=== PATIENT | male | born 1955 | race Caucasian/White ===

== ENCOUNTER 2017-11-25 15:54 | Inpatient (IN) | payer BC ==
[~2017-11-25] VITALS: Ht 180.3 cm; Wt 103.8 kg
[2017-11-25 16:51] LABS: BASOPHIL (%) 0.1 % (0-1); EOSINOPHIL (%) 0 % (0-5); HEMATOCRIT 42.8 % (38.0-50.0); HEMOGLOBIN 14.4 G/DL (12.5-16.6); IMMATURE GRANULOCYTE (%) 0.4 % (0.0-0.7); LYMPHOCYTE (%) 6.9 % (15-42); LYMPHOCYTE COUNT 0.9 K/uL (1.0-2.8); MCH 29.7 PG (29.0-34.0); MCHC 33.6 G/DL (30.0-36.0); MCV 88.2 FL (86-99); MONOCYTE (%) 10.2 % (3-12); MONOCYTE COUNT 1.4 K/uL (0-0.8); NEUTROPHIL (%) 82.4 % (45-76); PLATELET COUNT 176 K/uL (156-360); RBC DIS.WIDTH-CV 14.5 % (11.8-14.6); RED BLOOD COUNT 4.85 M/uL (4.00-5.50); WHITE BLOOD COUNT 13.4 K/uL (4.1-10.2)
[2017-11-25 16:59] LABS: ALBUMIN 4.6 g/dL (3.2-4.8); CHLORIDE 99 mEq/L (99-109); POTASSIUM 3.9 mEq/L (3.7-5.4)
[2017-11-25 17:00] LABS: SODIUM 136 mEq/L (136-147)
[2017-11-25 17:02] LABS: GLUCOSE 119 mg/dL (70-99); TOTAL PROTEIN 7.7 g/dL (6.4-8.3)
[2017-11-25 17:04] LABS: TOTAL BILIRUBIN 0.9 mg/dL (0.0-1.0)
[2017-11-25 17:05] LABS: ALKALINE PHOSPHATASE 47 IU/L (3-129); CREATININE 1.3 mg/dL (0.6-1.3); GFR ESTIMATE (CALCULATED) > 59 mL/min/ (58.99-99999)
[2017-11-25 17:07] LABS: AST (GOT) 15 IU/L (2-34); UREA NITROGEN (BUN) 18 mg/dL (9-23)
[2017-11-25 17:08] LABS: ALT (GPT) 12 IU/L (3-49)
[2017-11-25 17:09] LABS: LIPASE 16 U/L (1.0-51.0)
[2017-11-25 17:57] LABS: APPEARANCE CLEAR ((CLEAR)); BILIRUBIN NEGATIVE; BLOOD SMALL; COLOR STRAW ((YELLOW)); GLUCOSE (STRIP) NEGATIVE; KETONES 5; LEUKOCYTES NEGATIVE; NITRITE NEGATIVE; PROTEIN (STRIP) NEGATIVE; SPECIFIC GRAVITY 1.008 (1.000-1.030); UROBILINOGEN 0.2 MG/DL (0.2-1.0)
[2017-11-25 18:00] LABS: BACTERIA NONE SEEN /HPF; EPITHELIAL CELLS NONE SEEN /HPF; MUCUS NONE SEEN /LPF; RED BLOOD CELLS 0-5 /HPF (0-5); UCUL ADDED? NO; WHITE BLOOD CELLS 0-5 /HPF (0-5)
[2017-11-25] MEDS ORDERED: METRONIDAZOLE500 MG PO (18:38)
[2017-11-25] MEDS ORDERED: ALLOPURINOL300 MG PO (18:38)
[2017-11-25] MEDS ORDERED: OLMESARTAN MEDO40 MG PO (18:38)
[2017-11-25] MEDS ORDERED: ALLOPURINOL100 MG PO (18:38)
[2017-11-25] MEDS ORDERED: CIPROFLOXACIN500 M1 PO (18:39)
[2017-11-25] MEDS ORDERED: ADULT ASPIRIN R81 MG PO (18:44)
[2017-11-25] MEDS ORDERED: VITAMIN D31000 UNIT PO (18:45)
[2017-11-25] MEDS ORDERED: FISH OIL 1,0001 EAC7 PO (18:45)
[2017-11-25 20:53] LABS: C-REACTIVE PROTEIN 162.5 MG/L (0-10)
[2017-11-25 21:21] VITALS: BP 143/68
[2017-11-25 23:19] VITALS: BP 139/65
[2017-11-25 23:33] VITALS: BP 128/60
[2017-11-26 06:49] LABS: BASOPHIL (%) 0.3 % (0-1); EOSINOPHIL (%) 0.3 % (0-5); HEMATOCRIT 36.7 % (38.0-50.0); IMMATURE GRANULOCYTE (%) 0.4 % (0.0-0.7); LYMPHOCYTE (%) 8.2 % (15-42); LYMPHOCYTE COUNT 0.9 K/uL (1.0-2.8); MCH 29.2 PG (29.0-34.0); MCV 88.4 FL (86-99); MONOCYTE (%) 12.2 % (3-12); MONOCYTE COUNT 1.4 K/uL (0-0.8); NEUTROPHIL (%) 78.6 % (45-76); NEUTROPHIL COUNT 8.9 K/uL (1.8-6.4); PLATELET COUNT 148 K/uL (156-360); RBC DIS.WIDTH-CV 14.6 % (11.8-14.6); RBC DIS.WIDTH-SD 47.7 % (39-53); RED BLOOD COUNT 4.15 M/uL (4.00-5.50); WHITE BLOOD COUNT 11.3 K/uL (4.1-10.2)
[2017-11-26 06:51] LABS: HEMOGLOBIN 12.1 G/DL (12.5-16.6)
[2017-11-26 07:08] LABS: CHLORIDE 105 MEQ/L (99-109); CREATININE 1.2 MG/DL (0.6-1.3); GFR ESTIMATE (CALCULATED) > 59 mL/min/ (58.99-99999); GLUCOSE 108 mg/dL (70-99); POTASSIUM 4.1 MEQ/L (3.7-5.4); SODIUM 141 MEQ/L (136-147); UREA NITROGEN (BUN) 15 mg/dL (9-23)
[2017-11-26 08:04] VITALS: BP 129/62
[2017-11-26 15:48] LABS: C DIFF TOXIN NEGATIVE (NEGATIVE)
[2017-11-26 16:24] VITALS: BP 132/70
[2017-11-26 23:22] VITALS: BP 102/57
[2017-11-27 07:15] VITALS: BP 119/56
[2017-11-27 09:41] VITALS: BP 169/81
[2017-11-27 15:51] VITALS: BP 138/78
[2017-11-27 23:17] VITALS: BP 142/79
[2017-11-28 06:16] LABS: HEMATOCRIT 33.7 % (38.0-50.0); HEMOGLOBIN 10.9 G/DL (12.5-16.6); MCH 29.2 PG (29.0-34.0); MCHC 32.3 G/DL (30.0-36.0); MCV 90.3 FL (86-99); PLATELET COUNT 179 K/uL (156-360); RBC DIS.WIDTH-CV 14.3 % (11.8-14.6); RBC DIS.WIDTH-SD 47.5 % (39-53); RED BLOOD COUNT 3.73 M/uL (4.00-5.50); WHITE BLOOD COUNT 5.2 K/uL (4.1-10.2)
[2017-11-28 07:22] VITALS: BP 130/77
[2017-11-28] MEDS ORDERED: CIPROFLOXACIN500 M1 PO (13:28)
[2017-11-28] MEDS ORDERED: METRONIDAZOLE500 MG PO (13:29)
== END 2017-11-28 15:36 | disposition home or self-care (01) | DRG 392 ==
LOC: EME 15:54 → 5EAST 19:28 → EDOF 19:28 → ENRESERV 19:35 → 5EAST 20:48
PROVIDERS: Emergency Medicine; Hospitalist; Physician Assistant
DX: K57.40 Diverticulitis of both small and large intestine with perforation and abscess without bleeding (principal); I10 Essential (primary) hypertension; E78.5 Hyperlipidemia, unspecified; M10.9 Gout, unspecified; Z86.010 Personal history of colon polyps
CPT/HCPCS: 74018; 74177; 80048; 80053; 81003; 82948; 83605; 83690; 85025; 85027; 86140; 87040; 87493; 99281; 99285; J1650; J2543; J7030; J7050; S0030